=== PATIENT | female | born 1980 | race Caucasian/White ===

== ENCOUNTER 2018-03-11 11:21 | Outpatient (CLI) | payer OTHER | END 2018-03-11 16:11 | disposition home or self-care (01) | LOC: LAB 11:21 | DX: Z34.83 Encounter for supervision of other normal pregnancy, third trimester (principal); Z11.4 Encounter for screening for human immunodeficiency virus [HIV] ==

== ENCOUNTER 2018-03-26 08:06 | Outpatient (CLI) | payer OTHER | END 2018-03-26 09:28 | disposition home or self-care (01) | LOC: NST 08:06 | DX: Z34.83 Encounter for supervision of other normal pregnancy, third trimester (principal) ==

== ENCOUNTER 2018-04-09 10:14 | Outpatient (CLI) | payer OTHER ==
[2018-04-10] MEDS ORDERED: PRENATAL TABLE1 EAC1 PO (05:47)
== END 2018-04-09 10:48 | disposition home or self-care (01) ==
LOC: NST 10:14
DX: Z34.83 Encounter for supervision of other normal pregnancy, third trimester (principal)

== ENCOUNTER 2018-04-10 05:27 | Inpatient (IN) | payer OTHER ==
[~2018-04-10] VITALS: Ht 154.9 cm; Wt 76.7 kg
[2018-04-10] MEDS ORDERED: PRENATAL TABLE1 EAC1 PO (05:47)
== END 2018-04-12 12:12 | disposition home or self-care (01) | DRG 807 ==
LOC: OB/GYN → LDR 05:27 → OB/GYN 05:27
PROVIDERS: ADMIT Obstetrics & Gynecology Maternal & Fetal Medicine
PROC: 10E0XZZ Delivery of Products of Conception, External Approach (ICD-10-PCS; principal; 2018-04-10)
PROC: 4A1HXCZ Monitoring of Products of Conception, Cardiac Rate, External Approach (ICD-10-PCS; 2018-04-10)
PROC: 0UQGXZZ Repair Vagina, External Approach (ICD-10-PCS; 2018-04-10)
DX: O71.4 Obstetric high vaginal laceration alone (principal); Z37.0 Single live birth; Z3A.40 40 weeks gestation of pregnancy

== ENCOUNTER → 2019-08-17 | Emergency (ER) | payer OTHER ==
[~2019-08-17] VITALS: Ht 157.5 cm; Wt 69.4 kg
[~2019-08-17] MED LIST: CELEXA10 MG; CIPRO500 MG; PRENATAL TABLE1 EAC1 PO; WELLBUTRIN XL150 M1; [UNRECOGNIZED DRUG - OTHER]
== END | disposition home or self-care (01) ==
LOC: ER 20:05
DX: N39.0 Urinary tract infection, site not specified (principal); N23 Unspecified renal colic; R31.29 Other microscopic hematuria

== ENCOUNTER → 2020-02-04 | Emergency (ER) | payer OTHER ==
[~2020-02-04] VITALS: Ht 157.5 cm; Wt 70.8 kg
[~2020-02-04] MED LIST changes: +ADVAIR HFA 115/12 GM IH; +CLONAZEPAM1 MG PO; +SINGULAIR 10MG10 MG PO
== END | disposition home or self-care (01) ==
LOC: ER 20:26
DX: J45.998 Other asthma (principal); J20.9 Acute bronchitis, unspecified; Z03.818 Encounter for observation for suspected exposure to other biological agents ruled out

== ENCOUNTER 2020-07-21 09:58 | Outpatient (CLI) | payer OTHER | END 2020-07-21 15:00 | disposition home or self-care (01) | LOC: LAB 09:58 | PROVIDERS: ATTEND Pediatrics | DX: D64.89 Other specified anemias (principal); R53.83 Other fatigue ==

== ENCOUNTER 2020-07-21 10:37 | Outpatient (CLI) | payer OTHER | END 2020-07-21 10:41 | disposition home or self-care (01) | LOC: MRI 10:37 | PROVIDERS: ATTEND Orthopaedic Surgery | DX: M25.562 Pain in left knee (principal) | CPT/HCPCS: 73721 ==

== ENCOUNTER 2020-09-05 02:48 | Emergency (ER) | payer OTHER ==
[~2020-09-05] VITALS: Ht 157.5 cm; Wt 72.6 kg
[2020-09-05] MEDS ORDERED: ZITHROMAX500 MG PO (04:43)
== END 2020-09-05 04:50 | disposition home or self-care (01) ==
LOC: ER 02:48
DX: J06.9 Acute upper respiratory infection, unspecified (principal); Z11.52 Encounter for screening for COVID-19

== ENCOUNTER 2021-03-14 08:22 | Emergency (ER) | payer OTHER ==
[~2021-03-14] VITALS: Ht 157.5 cm; Wt 68.0 kg
[~2021-03-14 08:22] MED LIST changes: +ZITHROMAX500 MG PO
[2021-03-14] MEDS ORDERED: CITALOPRAM20 MG/10 M (08:40)
[2021-03-14] MEDS ORDERED: PYRIDIUM200 MG PO (12:11)
[2021-03-14] MEDS ORDERED: CIPRO500 MG PO (12:11)
== END 2021-03-14 12:35 | disposition home or self-care (01) ==
LOC: ER 08:22
DX: R30.0 Dysuria (principal); Z20.822 Contact with and (suspected) exposure to COVID-19

== ENCOUNTER 2021-03-16 13:13 | Emergency (ER) | payer OTHER ==
[~2021-03-16] VITALS: Ht 157.5 cm; Wt 68.0 kg
[~2021-03-16 13:13] MED LIST changes: +CIPRO500 MG PO; +CITALOPRAM20 MG/10 M; +PYRIDIUM200 MG PO
[2021-03-16] MEDS ORDERED: KETO10TA2 PO (13:22)
[2021-03-16] MEDS ORDERED: CIPRO100 MG (13:23)
[2021-03-16] MEDS ORDERED: PYRIDIUM100 M1 (13:23)
== END 2021-03-16 17:36 | disposition home or self-care (01) ==
LOC: ER 13:13
DX: N39.0 Urinary tract infection, site not specified (principal)

== ENCOUNTER 2022-01-08 11:04 | Emergency (ER) | payer OTHER ==
[~2022-01-08] VITALS: Ht 157.5 cm; Wt 70.3 kg
[~2022-01-08 11:04] MED LIST changes: +CIPRO100 MG; +KETO10TA2 PO; +PYRIDIUM100 M1
[2022-01-08] MEDS ORDERED: ONE DAILY MUL400 MCG PO (11:43)
== END 2022-01-08 17:37 | disposition home or self-care (01) ==
LOC: ER 11:04
DX: N93.9 Abnormal uterine and vaginal bleeding, unspecified (principal); N92.6 Irregular menstruation, unspecified; J45.909 Unspecified asthma, uncomplicated

== ENCOUNTER 2022-08-27 08:09 | Emergency (ER) | payer OTHER ==
[~2022-08-27] VITALS: Ht 157.5 cm; Wt 70.3 kg
[~2022-08-27 08:09] MED LIST changes: +ONE DAILY MUL400 MCG PO
== END 2022-08-27 10:10 | disposition home or self-care (01) ==
LOC: ER 08:09
DX: M62.838 Other muscle spasm (principal); M54.2 Cervicalgia

== ENCOUNTER 2024-10-03 13:09 | Emergency (ER) | payer OTHER ==
[~2024-10-03] VITALS: Ht 157.5 cm; Wt 74.4 kg
[2024-10-03 14:29] VITALS: BP 103/72; O2SAT 98
[2024-10-03] MEDS ORDERED: [UNRECOGNIZED DRUG - OTHER] (14:35)
[2024-10-03] MEDS ORDERED: MONTELUKAST SODI4 M1 (14:35)
[2024-10-03] MEDS ORDERED: SINGULAIR4 M1 PO (14:35)
[2024-10-03] MEDS ORDERED: CLARITIN5 MG/5 ML (14:36)
[2024-10-03] MEDS ORDERED: DICLOFENAC POTA25 MG PO (14:36)
[2024-10-03] MEDS ORDERED: ZYRTEC10 MG PO (14:37)
[2024-10-03 15:37] LABS: BASO % 0.8 % (0.1-1.2); EOS # 0.11 (0.04-0.54); EOS % 1.3 % (0.7-7.0); LYMPH # 1.92 (1.18-3.74); LYMPH % 22.7 % (19.3-53.1); MEAN PLATELET VOLUME 10.80 fl (9.4-12.4); MONO # 0.55 (0.24-0.82); MONO % 6.5 % (4.7-12.5); NEUT # 5.78 (1.56-6.13); NEUT % 68.5 % (34.0-71.1); RED CELL DISTRIBUTION WIDTH 13.1 % (11.6-14.4)
[2024-10-03 15:54] LABS: URINE APPEARANCE Clear; URINE BILIRRUBIN Negative (NEGATIVE); URINE BLOOD Small; URINE COLOR Yellow; URINE GLUCOSE Negative (NEGATIVE); URINE KETONE Trace (NEGATIVE); URINE LEUKOCYTE Negative; URINE NITRATE Negative; URINE PROTEIN Negative (NEGATIVE); URINE UROBILINOGEN 0.2 E.U./dl
[2024-10-03 15:58] LABS: URINE BACTERIA 104.3 uL (0.0-1933); URINE EPITHELIAL CELLS 27.8 uL (0.0-38.8); URINE RBC 21.4 uL (0.0-20.8); URINE WBC 6.6 uL (0.0-23.2)
[2024-10-03 16:11] LABS: COVID-19 AG NEGATIVE (NEGATIVE)
[2024-10-03 16:23] LABS: ALT/SGPT 23.0 U/L (12-78); AST/SGOT 28.0 U/L (15-37); BILIRUBIN TOTAL 0.17 mg/dL (0.3-1.2); BUN CREA RATIO 12.0 (7.0-25.0); CREATININE SERUM 0.74 mg/dL (0.55-1.02); GFR 86.06; GLOBULINA 3.7 G/DL (2.4-3.5); GLUCOSE FASTING 107.0 mg/dL (65-100); OSMOLALITY SERUM 280.0 MOSM/KG (275-295)
[2024-10-03 16:24] LABS: URINE CAST 0.00 uL (0.0-1.40); URINE MUCUS SCANT
[2024-10-03 16:25] LABS: TYPE CELLS SQUAMOUS
[2024-10-03] MEDS ORDERED: KETOROLAC TROMETHAMINE 30 MG VIAL IM STA (17:20)
[2024-10-03] MEDS ORDERED: KETOROLAC TROMETHAMINE 30 MG VIAL ONE (17:47)
== END 2024-10-03 18:36 | disposition home or self-care (01) ==
LOC: ER 13:09
PROVIDERS: Preventive Medicine Public Health & General Preventive Medicine
DX: R10.2 Pelvic and perineal pain (principal); N39.0 Urinary tract infection, site not specified; Z20.822 Contact with and (suspected) exposure to COVID-19